=== PATIENT | male | born 1995 | race Caucasian/White ===

== ENCOUNTER 2016-08-09 03:55 | Emergency (ER) | payer MEDICAID ==
[~2016-08-09] VITALS: Ht 170.2 cm; Wt 63.5 kg
--- NOTE | 2016-08-09 03:55 | NUR ---
PT RADHIKA ALS. TAKEN TO BED 2
[2016-08-09 04:03] VITALS: BP_SYST 136; BP_SYST 140; BP_DIAS 106; BP_DIAS 82
--- NOTE | 2016-08-09 04:05 | NUR ---
Dr. Ortiz evaluating patient
[2016-08-09] MEDS ORDERED: NACL 0.9% 1,000 ML IV SCH (04:08)
[2016-08-09] MEDS ORDERED: ONDANSETRON 4 MG/2 ML VIAL IVP ONE (04:10)
[2016-08-09] MEDS ORDERED: LORazepam 2 MG/ML VIAL IVP ONE (04:10)
--- NOTE | 2016-08-09 04:10 | NUR ---
PT IS 20/M BIBA TO ED WITH C/O ETOH. PT STATES HE WAS AT A CLUB CELEBRATING HIS SISTERS BIRTHDAY AND DRANK TOO MUCH. HE STATES HE WAS AT HOME AND FALL AND HIT THE BACK OF HIS HEAD ON SOMETHING BUT CANNOT RECALL IF HE LOC OR NOT. [facility] WAS ON SCENE SAYS HE WAS UNRESPONSIVE SO THEY GAVE NARCAN 0.5MG ONCE WITH RELIEF. PT STATES NO MED HX. DENIES D; SKIN IS PINK/WARM/DRY; AAOX4 WITH EVEN AND STEADY GAIT; LUNGS CLEAR BL; HR EVEN AND REGULAR; PT DENIES ANY FEVER, CP, SOB, OR COUGH AT THIS TIME; PATIENT STATES PAIN OF 5/10 AT THIS TIME; VSS; PATIENT POSITIONED FOR COMFORT; HOB ELEVATED; BEDRAILS UP X2; BED DOWN. ER MD MADE AWARE OF PT STATUS.
--- NOTE | 2016-08-09 04:37 | NUR ---
PT TAKEN TO CT
--- NOTE | 2016-08-09 04:54 | NUR ---
PATIENT BACK ON UNIT FROM CT
--- NOTE | 2016-08-09 06:20 | NUR ---
DR ANGLIN GAVE VERBAL ORDER TO STRAIGHT CATH TO GET URINE SAMPLE,WILL FOLLOW WITH ORDER
[2016-08-09] MEDS ORDERED: NACL 0.9% 3,000 ML IV ONE (06:30)
--- NOTE | 2016-08-09 06:40 | NUR ---
PHLEB AT BEDSIDE FOR REPEAT BLOOD ALCOHOL DRAW
--- NOTE | 2016-08-09 06:53 | NUR ---
DR. ANGLIN SPEAKING WITH PATIENT FAMILY
--- NOTE | 2016-08-09 07:04 | NUR ---
ENDORSED TRANSFER OF CARE TO DAY NURSES ESTEBAN LOUIS AND VU RN
--- NOTE | 2016-08-09 07:08 | NUR ---
RECIEVED REPORT FROM ESTEBAN MOORE.PT IS SLEEPING. AT BEDSIDE. NO ACUTE DISTRESS NOTED AT THIS TIME. WILL CONTINUE TO MONITOR PT.
--- NOTE | 2016-08-09 07:40 | NUR ---
Pt is for discharged.Pt is still sleeping.charged nurse made aware.mother at bedside.
--- NOTE | 2016-08-09 07:44 | NUR ---
WET TOWEL APPLIED TO FOREHEAD. MOTHER AT BEDSIDE.
--- NOTE | 2016-08-09 08:23 | NUR ---
Patient discharged with v/s stable. Written and verbal after care instructions given and explained to mother and PT. Patient alert, oriented and verbalized understanding of instructions. Ambulatory with steady gait. All questions addressed prior to discharge. ID band removed. Patient advised to follow up with PMD. Opportunity to ask questions provided and answered.pt advised to rest,increase fluid intake and Pt agreed to it.
[2016-08-09 08:26] VITALS: BP 102/56
== END 2016-08-09 08:23 | disposition home or self-care (01) ==
LOC: MED 03:55
DX: S09.90XA Unspecified injury of head, initial encounter (principal); F10.129 Alcohol abuse with intoxication, unspecified; F17.210 Nicotine dependence, cigarettes, uncomplicated; Y90.6 Blood alcohol level of 120-199 mg/100 ml; W19.XXXA Unspecified fall, initial encounter; Y93.89 Activity, other specified; Y92.89 Other specified places as the place of occurrence of the external cause; Y99.8 Other external cause status
CPT/HCPCS: 36415; 51701; 70450; 80053; 80305; 81001; 82150; 83690; 85025; 96361; 96374; 96375; 99285; C1758; G0482; J2060; J2405; J7030